=== PATIENT | female | born 1985 | race Hispanic/Latino ===

== ENCOUNTER 2024-06-08 05:18 | Emergency (ER) | payer OTHER ==
[~2024-06-08] VITALS: Ht 149.9 cm; Wt 79.8 kg
[2024-06-08 05:27] VITALS: PULSE 90; RESP 24; TEMP 98.4; O2SAT 99
[2024-06-08] MEDS: ONDANSETRON HCL INJ 2MG/ML 2ML 2 MG/ML VIAL IV STA ×2 (05:39→06:51)
[2024-06-08] MEDS: KETOROLAC TROMETHAMINE 30 MG/ML VIAL IV STA (05:40)
[2024-06-08] MEDS ORDERED: KETOROLAC TROMETHAMINE 30 MG/ML VIAL ONE (05:43)
[2024-06-08 05:48] LABS: BASOPHILS % 0.4 % (0.0-1.0); EOSINOPHILS # (AUTO) 0.1 (0.0-0.4); EOSINOPHILS % 0.9 % (0.0-6.0); HEMATOCRIT 43.6 % (34.2-44.1); HEMOGLOBIN 14.6 g/dL (12.0-16.0); LYMPHOCYTES # (AUTO) 2.2 (1.0-3.2); LYMPHOCYTES % 21.6 % (18.0-39.1); MEAN CORPUSCULAR HEMOGLOBIN 31.9 pg (28-32); MEAN CORPUSCULAR HGB CONC 33.5 g/dL (31-35); MEAN CORPUSCULAR VOLUME 95.4 fL (81-99); MONOCYTES # (AUTO) 0.7 (0.2-0.8); MONOCYTES % 7.1 % (4.4-11.3); NEUTROPHILS # (AUTO) 7.1 (2.1-6.9); NEUTROPHILS % 69.7 % (38.7-80.0); PLATELET COUNT 322 x10e3/uL (140-360); RED BLOOD COUNT 4.57 x10e6/uL (3.6-5.1); RED CELL DISTRIBUTION WIDTH 12.6 % (11.7-14.4); WHITE BLOOD COUNT 10.19 x10e3/uL (4.8-10.8)
[2024-06-08 05:51] LABS: CLARITY,URINE CLEAR (CLEAR); COLOR,URINE YELLOW (YELLOW); LEUKOCYTE ESTERASE ,URINE NEGATIVE (NEGATIVE); NITRITE,URINE NEGATIVE (NEGATIVE); PH,URINE 6 (5 - 7)
[2024-06-08 05:52] LABS: BILIRUBIN,URINE NEGATIVE (NEGATIVE); GLUCOSE, URINE NEGATIVE (NEGATIVE); KETONES,URINE NEGATIVE (NEGATIVE); PROTEIN,URINE DIPSTICK NEGATIVE (NEGATIVE); URINE UROBILINOGEN 0.2 mg/dL (0.2 - 1)
[2024-06-08 06:03] LABS: ANION GAP 12.9 mmol/L (8-16); CALCIUM 8.9 mg/dL (8.4-10.2); CREATININE, SERUM 0.74 mg/dL (0.57-1.11); POTASSIUM 3.9 mmol/L (3.5-5.1)
[2024-06-08 06:13] LABS: BACTERIA,URINE MODERATE /HPF; EPITHELIAL CELLS,URINE MODERATE /LPF; WBC,URINE (MAN) 0-5 /HPF (0-5)
[2024-06-08] MEDS: Morphine 4mg INJECTION 4 MG/ML INJ IV STA (06:51)
[2024-06-08] MEDS: SODIUM CHLORIDE 0.9% 1000ML 1,000 ML IV STA (06:51)
[2024-06-08] MEDS ORDERED: HYDROCODON-ACE1 EA11 PO (07:02)
[2024-06-08] MEDS ORDERED: ONDANSETRON ODT4 MG PO (07:02)
[2024-06-08] MEDS ORDERED: FLOMAX0.4 MG PO (07:02)
[2024-06-08] MEDS: HYDROMORPHONE 1MG/1ML INJ IV STA (07:45)
== END 2024-06-08 08:30 | disposition home or self-care (01) ==
LOC: ER 05:26
DX: R10.31 Right lower quadrant pain (principal); N13.2 Hydronephrosis with renal and ureteral calculous obstruction; K57.90 Diverticulosis of intestine, part unspecified, without perforation or abscess without bleeding; R11.2 Nausea with vomiting, unspecified
CPT/HCPCS: 36415; 74176; 80048; 81001; 85025; 99284; J1171; J1885; J2270; J2405; J7030

== ENCOUNTER 2024-06-16 02:32 | Emergency (ER) | payer OTHER ==
[~2024-06-16] VITALS: Ht 149.9 cm; Wt 79.8 kg
[~2024-06-16 02:32] MED LIST: FLOMAX0.4 MG PO; HYDROCODON-ACE1 EA11 PO; ONDANSETRON ODT4 MG PO
[2024-06-16 02:36] VITALS: PULSE 87; RESP 20; TEMP 98.2; O2SAT 98
[2024-06-16] MEDS ORDERED: LACTULOSE20 GM/30 M PO (02:40)
== END 2024-06-16 03:10 | disposition home or self-care (01) ==
LOC: ER 02:38
DX: K59.00 Constipation, unspecified (principal)
CPT/HCPCS: 74018; 99283